=== PATIENT | female | born 1965 | race African-American/Black ===

== ENCOUNTER 2017-10-11 16:52 | Emergency (ER) | payer MEDICARE, MEDICAID ==
[2017-10-11] MEDS ORDERED: diphenhydrAMINE 50 MG/ML VIAL ONE (17:38)
[2017-10-11] MEDS ORDERED: Metoclopramide HCl 10 MG/2 ML VIAL ONE (17:38)
== END 2017-10-11 20:22 | disposition home or self-care (01) ==
LOC: ERS 16:52
DX: R51 Headache (principal); E11.9 Type 2 diabetes mellitus without complications; E78.5 Hyperlipidemia, unspecified; F32.9 Major depressive disorder, single episode, unspecified; F17.210 Nicotine dependence, cigarettes, uncomplicated; I10 Essential (primary) hypertension; Z79.84 Long term (current) use of oral hypoglycemic drugs; Z79.82 Long term (current) use of aspirin; Z79.899 Other long term (current) drug therapy; Z71.6 Tobacco abuse counseling
CPT/HCPCS: 96365; 96375; J1200; J2765

== ENCOUNTER 2020-01-11 10:37 | Outpatient (CLI) | payer MEDICARE, MEDICAID ==
--- NOTE | 2020-01-11 13:00 | MRI ---
MRI cervical spine noncontrast: 01/11/2020 HISTORY: 54-year-old female with ICD-10: "M 50.20, other cervical disc displacement, unspecified cervical adwoa on" COMPARISON: No prior cervical spine MRI. FINDINGS: Alignment is normal. Vertebral body heights are maintained. Cervical spinal cord is normal in size an d signal. No high-grade disc space narrowing at any level. No high-grade facet DJD. Bone marrow signal is normal. At C6/7 there is a small focal central disc herniation which mildly indents the ventral surface of th e spinal cord. There is no high-grade central spinal canal stenosis or high-grade neural foraminal stenosis at any level. No impingement on nerve root. IMPRESSION: 1. Small central disc herniation at C6-7 mildly indenting the spinal cord. 2. Otherwise negative.
== END 2020-01-11 10:38 | disposition home or self-care (01) ==
LOC: BICMRI 10:37
PROVIDERS: ATTEND Psychiatry & Neurology Neurology
DX: M50.223 Other cervical disc displacement at C6-C7 level (principal)
CPT/HCPCS: 72141

== ENCOUNTER 2020-05-01 10:42 | Outpatient (CLI) | payer MEDICARE, MEDICAID ==
--- NOTE | 2020-05-01 11:35 | RAD ---
Exam: Lumbar spine 4 views HISTORY: Right-sided back pain, acute. FINDINGS: Weightbearing views of lumbar spine. 5 lumbar type vertebra. Lumbar spine vertebral body he ight is maintained. No fracture. Visualized sacrum and bony pelvis are intact No spondylolisthesis or spondylolysis Disc space heights are preserved. Minimal osteophyte formation at L3-L4 and L4-L5. IMPRESSION: No radiographic evidence of significant degenerative change. Additional imaging if clinic ally warranted.
== END 2020-05-01 10:43 | disposition home or self-care (01) ==
LOC: BICRAD 10:42
PROVIDERS: ATTEND Family Medicine
DX: M54.5 Low back pain (principal)
CPT/HCPCS: 72110

== ENCOUNTER 2021-03-31 17:00 | Outpatient (CLI) | payer MEDICARE, OTHER | END 2021-03-31 17:01 | disposition home or self-care (01) | LOC: SLEEPLAB 17:00 | DX: G47.33 Obstructive sleep apnea (adult) (pediatric) (principal) | CPT/HCPCS: 95806 ==

== ENCOUNTER 2021-10-28 17:33 | Emergency (ER) | payer MEDICARE, OTHER ==
[2021-10-28 18:09] LABS: #Basophils 0.1 thou/uL (0.0-0.2); #Eosinphils 0.1 thou/uL (0.0-0.7); #Lymphocytes 2.4 thou/uL (1.20-3.40); #Monocytes 0.3 thou/uL (0.11-0.59); #Neutrophils 3.4 thou/uL (1.40-6.50); %Basophils 1.1 % (0.0-1.0); %Eosinophils 1.6 % (0.0-10.0); %Lymphocytes 38.2 % (21.0-51.0); %Monocytes 4.5 % (0.0-10.0); %Neutrophils 54.6 % (42.0-75.0); Hemoglobin 12.4 g/dL (12.0-16.0); Mean Corpuscular HGB CONC 31.3 g/dL (32.0-36.0); Mean Corpuscular Hemoglobin 29.2 pg (27.0-31.0); Mean Corpuscular Volume 93.3 fL (78.0-98.0); Platelet Count 206 thou/uL (130-400); RBC Distribution Width 12.6 % (11.5-14.5); Red Blood Cell (RBC) Count 4.24 mill/uL (4.20-5.40); White Blood Cell (WBC) Count 6.2 thou/uL (4.8-10.8)
[2021-10-28] MEDS ORDERED: Lidocaine Viscous Sol 2% 15 ml UD Cup ONE (18:24)
[2021-10-28] MEDS ORDERED: Mag-Al 1200 mg/1200 mg/30 ML UDCUP ONE (18:24)
[2021-10-28 18:37] LABS: ALT (SGPT) 15 U/L (8-55); AST (SGOT) 14 U/L (5-34); Albumin 4.4 g/dL (3.5-5.0); Alkaline Phosphatase 62 U/L (40-110); Anion Gap 13 mmol/L (10-20); BUN (Urea Nitrogen) 11 mg/dL (9.8-20.1); Bilirubin, Total 0.7 mg/dL (0.2-1.2); Calc. Creatinine Clearance 0 mL/min (70-130); Calcium 9.3 mg/dL (7.8-10.44); Carbon Dioxide 27 mmol/L (22-29); Chloride 105 mmol/L (98-107); Globulin 2.8 g/dL (2.4-3.5); Glucose 107 mg/dL (70-105); Lipase 44 U/L (8-78); Potassium 4.3 mmol/L (3.5-5.1); Protein, Total 7.2 g/dL (6.0-8.3); Sodium 141 mmol/L (136-145)
== END 2021-10-28 19:13 | disposition home or self-care (01) ==
LOC: ERS 17:33
DX: K21.9 Gastro-esophageal reflux disease without esophagitis (principal); E11.9 Type 2 diabetes mellitus without complications; E78.5 Hyperlipidemia, unspecified; E78.00 Pure hypercholesterolemia, unspecified; I10 Essential (primary) hypertension; F17.210 Nicotine dependence, cigarettes, uncomplicated; H54.7 Unspecified visual loss
CPT/HCPCS: 71045; 80053; 83690; 84484; 85025; 93005

== ENCOUNTER 2021-12-16 19:00 | Outpatient (CLI) | payer MEDICARE, OTHER | END 2021-12-16 19:01 | disposition home or self-care (01) | LOC: SLEEPLAB 19:00 | PROVIDERS: ATTEND Obstetrics & Gynecology | DX: G47.33 Obstructive sleep apnea (adult) (pediatric) (principal); R06.83 Snoring; E66.9 Obesity, unspecified; G47.10 Hypersomnia, unspecified; Z68.27 Body mass index [BMI] 27.0-27.9, adult | CPT/HCPCS: 95811 ==

== ENCOUNTER 2022-01-05 13:27 | Outpatient (CLI) | payer MEDICARE, OTHER ==
[~2022-01-05 13:27] MED LIST: Magnevist 469MG/ML 20 ML VIAL ONE
== END 2022-01-05 13:28 | disposition home or self-care (01) ==
LOC: BICMRI 13:27
PROVIDERS: ATTEND Nurse Practitioner Family
DX: M79.89 Other specified soft tissue disorders (principal); M71.561 Other bursitis, not elsewhere classified, right knee
CPT/HCPCS: 82565; A9579

== ENCOUNTER 2022-04-18 19:00 | Outpatient (CLI) | payer MEDICARE, OTHER, MEDICAID | END 2022-04-18 19:01 | disposition home or self-care (01) | LOC: SLEEPLAB 19:00 | PROVIDERS: ATTEND Obstetrics & Gynecology | DX: G47.33 Obstructive sleep apnea (adult) (pediatric) (principal); R06.83 Snoring; G47.10 Hypersomnia, unspecified; I10 Essential (primary) hypertension; F32.9 Major depressive disorder, single episode, unspecified; E11.9 Type 2 diabetes mellitus without complications; K21.9 Gastro-esophageal reflux disease without esophagitis; G47.00 Insomnia, unspecified | CPT/HCPCS: 95810 ==

== ENCOUNTER 2022-06-06 19:30 | Outpatient (CLI) | payer MEDICARE, MEDICAID | END 2022-06-06 19:31 | disposition home or self-care (01) | LOC: SLEEPLAB 19:30 | PROVIDERS: ATTEND Obstetrics & Gynecology | DX: G47.33 Obstructive sleep apnea (adult) (pediatric) (principal); I10 Essential (primary) hypertension; E11.9 Type 2 diabetes mellitus without complications; R06.83 Snoring; G47.10 Hypersomnia, unspecified; E66.9 Obesity, unspecified; Z68.26 Body mass index [BMI] 26.0-26.9, adult | CPT/HCPCS: 95811 ==

== ENCOUNTER 2023-08-04 14:01 | Outpatient (CLI) | payer MEDICARE, OTHER | END 2023-08-04 14:02 | disposition home or self-care (01) | LOC: BICRAD 14:01 | PROVIDERS: ATTEND Student in an Organized Health Care Education/Training Program | DX: M25.521 Pain in right elbow (principal) ==

== ENCOUNTER 2024-04-28 20:34 | Emergency (ER) | payer MEDICARE, MEDICAID ==
[~2024-04-28 20:34] MED LIST changes: +Iopamidol-370 76% 500 ML MDV (1 ML CHARGE) ONE; -Magnevist 469MG/ML 20 ML VIAL ONE
[2024-04-28 21:12] LABS: #Basophils 0.03 10x3/uL (0.0-0.2); %Basophils 0.6 % (0.0-1.0); %Eosinophils 3.2 % (0.0-10.0); %Lymphocytes 40.6 % (21.0-51.0); %Monocytes 7.3 % (0.0-10.0); %Neutrophils 48.1 % (42.0-75.0); Hematocrit 41.5 % (36.0-47.0); Hemoglobin 12.8 g/dL (12.0-16.0); Mean Corpuscular HGB CONC 30.8 g/dL (32.0-36.0); Mean Corpuscular Volume 94.1 fL (78.0-98.0); Mean Platelet Volume 11.1 fL (7.4-10.4); Platelet Count 175 10x3/uL (130-400); RBC Distribution Width 13.7 % (11.5-14.5); Red Blood Cell (RBC) Count 4.41 mill/uL (4.20-5.40)
[2024-04-28 21:15] LABS: Bacteria/HPF None Seen HPF (None Seen); Bilirubin Negative (Negative); Blood, Urine Trace (Negative); CAUTI Indications for Culture Pelvic or flank pain; Clarity Clear (Clear); Glucose, Urine (Dipstick) Greater than 1000 mg/dL (Negative); Ketone, Urine Negative (Negative); Leukocyte Negative Leu/uL (Negative); Nitrite Negative (Negative); Protein, Urine (Dipstick) 10 mg/dL (Neg-Trace); RBC/HPF 0-3 HPF (0-3); Specific Gravity, Urine 1.044 (1.002-1.036); Squamous Epithelial 0-3 HPF (0-3); Urobilinogen Normal mg/dL (Less than 2); WBC/HPF 0-3 HPF (0-3)
[2024-04-28 21:16] LABS: Urine Culture Reflex No No
[2024-04-28 21:29] LABS: ALT (SGPT) 13 U/L (8-55); AST (SGOT) 16 U/L (5-34); Albumin 4.1 g/dL (3.4-4.8); Alkaline Phosphatase 63 U/L (40-110); Anion Gap 14 mmol/L (10-20); BUN (Urea Nitrogen) 13 mg/dL (9.8-20.1); Bilirubin, Total 0.7 mg/dL (0.2-1.2); Calc. Creatinine Clearance 0 mL/min (70-130); Calcium 9.1 mg/dL (7.8-10.44); Carbon Dioxide 25 mmol/L (23-31); Chloride 107 mmol/L (98-107); Estimated GFR 76; Globulin 3.6 g/dL (2.4-3.5); Glucose 174 mg/dL (80-115); Magnesium 2.3 mg/dL (1.6-2.6); Potassium 3.6 mmol/L (3.5-5.1); Protein, Total 7.7 g/dL (5.8-8.1); Sodium 142 mmol/L (136-145)
[2024-04-28 21:36] LABS: Troponin I Less than 0.010 ng/mL (< 0.028)
[2024-04-28] MEDS ORDERED: Ondansetron PF 4 MG/2 ML Vial ONE (22:49)
[2024-04-28] MEDS ORDERED: Ketorolac Tromethamine 30 MG (1 mL) VIAL ONE (22:49)
[2024-04-28] MEDS ORDERED: Acetaminophen 500 MG TAB ONE (22:49)
[2024-04-28 23:49] LABS: Troponin I Less than 0.010 ng/mL (< 0.028)
== END 2024-04-29 00:07 | disposition home or self-care (01) ==
LOC: ERS 20:34
DX: R10.32 Left lower quadrant pain (principal); J39.9 Disease of upper respiratory tract, unspecified; R03.0 Elevated blood-pressure reading, without diagnosis of hypertension; E11.9 Type 2 diabetes mellitus without complications; I10 Essential (primary) hypertension; F17.210 Nicotine dependence, cigarettes, uncomplicated; Z55.6 Problems related to health literacy
CPT/HCPCS: 71045; 74177; 80053; 81001; 83690; 83735; 83880; 84484 ×2; 85025; 93005; 96374; 96375; 99284; J1885; J2405; Q9967; 36415